=== PATIENT | female | born 1955 | race Caucasian/White ===

== ENCOUNTER → 2016-07-02 | Outpatient (CLI) | payer OTHER | LOC: FIMAGING 09:27 | DX: Z12.31 Encounter for screening mammogram for malignant neoplasm of breast (principal) | CPT/HCPCS: G0202 ==

== ENCOUNTER → 2017-07-16 | Outpatient (CLI) | payer OTHER | LOC: FIMAGING 15:59 | PROVIDERS: ATTEND Internal Medicine | DX: Z12.31 Encounter for screening mammogram for malignant neoplasm of breast (principal) ==

== ENCOUNTER → 2017-08-12 | Outpatient (CLI) | payer OTHER | LOC: BMCIMAGING 09:08 | PROVIDERS: ATTEND Internal Medicine Rheumatology | DX: M19.041 Primary osteoarthritis, right hand (principal); M19.042 Primary osteoarthritis, left hand ==

== ENCOUNTER → 2018-01-20 | Outpatient (CLI) | payer OTHER | LOC: FIMAGING 07:15 | PROVIDERS: ATTEND Radiology Diagnostic Radiology | DX: I83.893 Varicose veins of bilateral lower extremities with other complications (principal); L03.116 Cellulitis of left lower limb ==

== ENCOUNTER → 2018-02-11 | Day surgery (SDC) | payer OTHER ==
[~2018-02-11] MED LIST: LIDO/EPI 1% **for epidural** 30 ML SDV ONE; LIDOCAINE 1% 300 MG/30 ML SDV ONE; SODIUM TETRADECYL SULFATE 3% 2 ML VIAL IV ONE
== END | disposition home or self-care (01) ==
LOC: FIMAGING 08:30
PROVIDERS: ATTEND Radiology Diagnostic Radiology
PROC: 065P3ZZ Destruction of Right Saphenous Vein, Percutaneous Approach (ICD-10-PCS; principal; 2018-02-11)
PROC: 065Q3ZZ Destruction of Left Saphenous Vein, Percutaneous Approach (ICD-10-PCS; principal; 2018-02-11)
DX: I83.813 Varicose veins of bilateral lower extremities with pain (principal); I83.893 Varicose veins of bilateral lower extremities with other complications

== ENCOUNTER → 2018-02-24 | Outpatient (CLI) | payer OTHER | LOC: FIMAGING 16:10 | PROVIDERS: ATTEND Radiology Diagnostic Radiology | DX: Z09 Encounter for follow-up examination after completed treatment for conditions other than malignant neoplasm (principal); M79.89 Other specified soft tissue disorders; Z86.79 Personal history of other diseases of the circulatory system ==

== ENCOUNTER → 2018-05-11 | Outpatient (CLI) | payer OTHER ==
[~2018-05-11] MED LIST changes: +IOPAMIDOL (ISOVUE 370) 100 ML BTL IV ONE; -LIDO/EPI 1% **for epidural** 30 ML SDV ONE; -LIDOCAINE 1% 300 MG/30 ML SDV ONE; -SODIUM TETRADECYL SULFATE 3% 2 ML VIAL IV ONE
== END ==
LOC: FIMAGING 07:28
PROVIDERS: ATTEND Radiology Diagnostic Radiology
DX: I70.8 Atherosclerosis of other arteries (principal); R22.42 Localized swelling, mass and lump, left lower limb
CPT/HCPCS: Q9967

== ENCOUNTER → 2018-09-03 | Outpatient (CLI) | payer OTHER | LOC: FIMAGING 16:13 | PROVIDERS: ATTEND Internal Medicine | DX: Z12.31 Encounter for screening mammogram for malignant neoplasm of breast (principal) ==